=== PATIENT | male | born 1975 | race Two or more races ===

== ENCOUNTER 2018-01-14 07:55 | Emergency (ER) | payer OTHER ==
[2018-01-14 08:02] VITALS: PULSE 64; RESP 16; TEMP 98.6; O2SAT 97
[2018-01-14] MEDS ORDERED: TDAP ADULT 0.5 ML INJ (BOOSTRIX) IM ONE (08:07)
--- NOTE | 2018-01-14 08:10 | EDPHY ---
H & P Smoking Status: Never smoked Time Seen by Provider: 01/14/18 07:58 HPI/ROS: CHIEF COMPLAINT: Left 3rd digit laceration HISTORY OF PRESENT ILLNESS: 42-year-old [id number] male with out-of- date tetanus works at [employer], was cutting camacho this morning and sustained accidental skin avulsion to the left 3rd digit distal phalanx dorsal aspect. His colleague bandaged the area this morning. No paresthesia. No other injury. PHYSICAL EXAM (Prior to examination, patient consented to physical exam, hands were washed and my usual and customary physical exam procedures followed) 1) GENERAL: Well-developed, well-nourished, alert and oriented. Appears to be in no acute distress. 2) HEAD: Normocephalic 3) HEENT: sclera anicteric 4) LUNGS: Breathing comfortably. 5) SKIN: Left 3rd digit distal phalanx dorsal aspect skin avulsion actively bleeding. 6) MUSCULOSKELETAL: FDP FDS function intact, extensor function intact. Full sensation distally. No signs of infection. Negative kanavel. (Corinne Luna) Constitutional: Initial Vital Signs Temperature (C) 37 C 01/14/18 08:00 Heart Rate 64 01/14/18 08:00 Respiratory Rate 16 01/14/18 08:00 Blood Pressure 136/84 H 01/14/18 08:00 O2 Sat (%) 97 01/14/18 08:00 O2 Delivery Mode Room Air Allergies/Adverse Reactions: No Known Allergies Allergy (Unverified 01/14/18 07:59) Home Medications: Medication Instructions Recorded NK [No Known Home Meds] 01/14/18 MDM/Departure - MDM Imaging Results: Finger x-ray interpreted as negative for fracture (Lexa Phan) Procedures: Procedure: Wound management 0.5% bupivicaine without epinephrine digital nerve block applied by myself using usual and customary technique. Area is then cleansed by ER staff and Surgicel dressing applied resulting in hemostasis. Wound be allowed to heal via secondary intention. (Corinne Luna) Medications Given: Discontinued Medications Diphtheria/Tetanus/Acell Pertussis (Boostrix) 0.5 ml IM .ONCE ONE Stop: 01/14/18 08:08 Last Admin: 01/14/18 08:19 Dose: 0.5 ml ED Course/Re-evaluation: Wound will be allowed to heal via secondary intention. No osseous involvement on xray. Wound is hemostatic at discharge. Usual and customary wound precautions instructions provided. Care of patient under supervision of secondary supervising physician Dr Phan . (Corinne Luna) - Depart Disposition: Home, Routine, Self-Care Clinical Impression: Avulsion of skin of finger Qualifiers: Encounter type: initial encounter Qualified Code(s): S61.209A - Unspecified open wound of unspecified finger without damage to nail, initial encounter Condition: Good Instructions: Skin Avulsion (ED) Additional Instructions: Return to the ER if you develop redness, swelling, discharge, warmth to the wound, red streaks going up your arm, or any other symptoms that concern you. Regrese al cuarto de emergencias si desarolla enrrojecimiento, hinchazon, desecho, calor en la herida, lineas garcía en el brazo, o cualquier otro sintoma que le preocupe. Stand Alone Forms: Work Comp Follow Up Referrals: Follow-up, with your work comp provider in 2 days [Other] - As per Instructions Print Language: Brazilian
[2018-01-14 08:59] VITALS: BP 112/69
== END 2018-01-14 09:04 | disposition home or self-care (01) ==
PROC: 3E0T3BZ Introduction of Anesthetic Agent into Peripheral Nerves and Plexi, Percutaneous Approach (ICD-10-PCS; principal; 2018-01-14)
DX: S61.203A Unspecified open wound of left middle finger without damage to nail, initial encounter (principal); Z23 Encounter for immunization; W45.8XXA Other foreign body or object entering through skin, initial encounter; Y92.512 Supermarket, store or market as the place of occurrence of the external cause; Y99.0 Civilian activity done for income or pay; Y93.89 Activity, other specified